=== PATIENT | male | born 1940 | race Caucasian/White ===

== ENCOUNTER 2017-01-07 20:12 | Emergency (ER) | payer OTHER ==
[2017-01-07 20:21] VITALS: RESP 16; TEMP 98.4
[2017-01-07] MEDS ORDERED: FLUORESCEIN SODIUM 1 MG STRIP OP ONE (21:23)
[2017-01-07] MEDS ORDERED: PROPARACAINE 0.5% 15 ML OPHT DROP OP ONE (21:23)
--- NOTE | 2017-01-07 21:56 | EDPHY ---
H & P Time Seen by Provider: 01/07/17 21:22 HPI/ROS: CHIEF COMPLAINT: Left eye discomfort HISTORY OF PRESENT ILLNESS: 76-year-old male complaining of foreign body sensation left eye. He had glaucoma surgery 1 month ago, states that today felt a foreign object into his left eye which he rubbed and subsequently removed. He hascontinued foreign body sensation left eye. No visual acuity changes no diplopia no photophobia no exposure to high speed projectiles PRIMARY CARE PROVIDER:[facility] REVIEW OF SYSTEMS: A ten point review of systems was performed and is negative with the exception of the items mentioned in the HPI PHYSICAL EXAM (Prior to examination, patient consented to physical exam, hands were washed and my usual and customary physical exam procedures followed) 1) GENERAL: Well-developed, well-nourished, alert and oriented. Appears to be in no acute distress. 2) HEAD: Normocephalic 3) ENT: nasopharynx oropharynx clear 4) LUNGS: Breathing comfortably. 5) OCULAR EXAM: Visual Acuity: noted from Nurse's notes. Pupils:equal round and reactive to light EOMI Lids: no edema or swelling, upper and lower lids were everted and no foreign bodies were visualized, no areas of increased fluorescein uptake. Skin: no proptosis, no periorbital erythema or swelling, no vesicles, no pain with extraocular movements. Conjunctivae: not injected, no discharge, negative Redd test. Cornea: exam with fluorescein showsan area of increased uptake at the 5 o'clock position consistent with corneal abrasion Anterior chamber:normal, no hyphema or hypopyon Smoking Status: Never smoked Constitutional: Initial Vital Signs Temperature (C) 36.9 C 01/07/17 20:15 Heart Rate 75 01/07/17 20:15 Respiratory Rate 16 01/07/17 20:15 Blood Pressure 166/89 H 01/07/17 20:15 O2 Sat (%) 96 01/07/17 20:15 O2 Delivery Mode Room Air Allergies/Adverse Reactions: No Known Allergies Allergy (Unverified 01/07/17 20:21) MDM/Departure - MDM Medications Given: Discontinued Medications Fluorescein Sodium (Rovcf-L-Mcpjd) 1 mg OP EDNOW ONE Stop: 01/07/17 21:24 Last Admin: 01/07/17 21:31 Dose: 1 mg Proparacaine HCl (Alcaine 0.5%) 1 drops OP EDNOW ONE Stop: 01/07/17 21:24 Last Admin: 01/07/17 21:31 Dose: 1 drop ED Course/Re-evaluation: Exam findings consistent with corneal abrasion. Doubt ruptured orbit. Doubt intraorbital foreign body. Started on ophthalmologic antibiotics - Depart Disposition: Home, Routine, Self-Care Clinical Impression: Corneal abrasion, left Qualifiers: Encounter type: initial encounter Qualified Code(s): S05.02XA - Injury of conjunctiva and corneal abrasion without foreign body, left eye, initial encounter Condition: Good Instructions: Corneal Abrasion (ED), Ofloxacin (Into the eye) Referrals: Kelby Guillory MD [Medical Doctor] - 01/09/17
[2017-01-07] MEDS ORDERED: OFLOXACIN 0.3% SOLN PREPACK OPHT.BTL TAKEHOME ONE (21:57)
[2017-01-07 22:09] VITALS: BP 148/67; PULSE 71; O2SAT 97
== END 2017-01-07 22:09 | disposition home or self-care (01) ==
DX: S05.02XA Injury of conjunctiva and corneal abrasion without foreign body, left eye, initial encounter (principal); X58.XXXA Exposure to other specified factors, initial encounter